=== PATIENT | female | born 1945 | race Caucasian/White ===

== ENCOUNTER → 2019-01-30 | Day surgery (SDC) | payer MEDICARE ==
[2019-01-27 11:57] LABS: ANION GAP 12.9 mmol/L (8-16); BLOOD UREA NITROGEN 23 mg/dL (7-26); BUN/CREATININE RATIO 27 (6-25); CALCIUM 10.2 mg/dL (8.4-10.2); CARBON DIOXIDE 31 mmol/L (22-29); CHLORIDE 98 mmol/L (98-107); CREATININE, SERUM 0.84 mg/dL (0.57-1.11); EST GLOMERULAR FILTRATION RATE > 60 ML/MIN (60-); GLUCOSE 90 mg/dL (74-118); POTASSIUM 3.9 mmol/L (3.5-5.1); SODIUM 138 mmol/L (136-145)
[2019-01-27 12:37] LABS: BASOPHILS # (AUTO) 0.1 (0.0-0.1); EOSINOPHILS # (AUTO) 0.2 (0.0-0.4); EOSINOPHILS % 2.1 % (0.0-6.0); HEMATOCRIT 46.2 % (34.2-44.1); HEMOGLOBIN 15.1 g/dL (12.0-16.0); LYMPHOCYTES # (AUTO) 1.8 (1.0-3.2); LYMPHOCYTES % 22.3 % (18.0-39.1); MEAN CORPUSCULAR HEMOGLOBIN 30.1 pg (28-32); MEAN CORPUSCULAR HGB CONC 32.7 g/dL (31-35); MEAN CORPUSCULAR VOLUME 92.2 fL (81-99); MONOCYTES # (AUTO) 0.6 (0.2-0.8); MONOCYTES % 7.3 % (4.4-11.3); NEUTROPHILS # (AUTO) 5.5 (2.1-6.9); NEUTROPHILS % 67.1 % (38.7-80.0); PLATELET COUNT 236 x10e3/uL (140-360); RED BLOOD COUNT 5.01 x10e6/uL (3.6-5.1); RED CELL DISTRIBUTION WIDTH 12.6 % (11.7-14.4)
--- NOTE | 2019-01-27 13:00 | Diagnostic Imaging Report ---
EXAMINATION: PA and lateral views of the chest. COMPARISON: None CLINICAL HISTORY: Preoperative study for thigh surgery DISCUSSION: Postsurgical changes of the left lung presumably related to partial pneumonectomy with elevation of the left hemidiaphragm. Left hilar surgical clips. No airspace consolidation, pleural effusion, or pneumothorax. Cardiomediastinal contour is otherwise within normal limits. No acute osseous abnormality. Posterior left seventh rib defect. Degenerative disc changes of the thoracic spine. IMPRESSION: No acute cardiopulmonary abnormality. Signed by: Dr. Ricardo Farooq M.D. on 01/27/2019 12:57 PM
[~2019-01-30] MED LIST: ATORVASTATIN CA20 MG PO; BUPIVACAINE 0.25% 30ML SDV INJ ONE; BUPIVACAINE/EPINEPHRINE 0.25% 10 ML SDV INJ ONE; CRANBERRY 12,61 EACH PO; DOXYCYCLINE HY100 MG PO; FENTANYL CITRATE/PF 100MCG/2 ML INJ ONE; FISH OIL 1,0001 EAC2 PO; IMIPRAMINE HCL50 MG PO; LIDOCAINE HCL 1% LOCAL INJ 20 ML VIAL ONE; LIDOCAINE HCL 2% LOCAL INJ 5 ML SDV VIAL INJ ONE; LOSARTAN POTASS25 MG PO; MIDAZOLAM HCL 2 MG/2 ML VIAL ONE; OSTEO BI-FLEX1 EACH; OXYBUTYNIN CHLOR5 MG PO; PANTOPRAZOLE SO40 MG PO; PEPCID20 MG; PRILOSEC20 MG; PROBIOTIC & AC1 EACH PO; PROPOFOL IV EMULSION 10 MG/ML 20 ML VIAL ONE; TURMERIC PO; VIT D PO; VITAMIN E400 UNI2; WOMEN'S DAILY1 EAC1; ZINC SULFATE220 MG PO
--- OUTSIDE RECORDS SUMMARY | 2019-01-30 06:24 | XMS REPORT | Clinical Summary ---
Author Author [facility] Address Unknown Phone Unavailable Care Team Providers Care Hydro Operator Name Role Phone Mason Woodall MD PCP Allergies Comments Active Allergy Reactions Severity Noted Date Iodine 02/17/2016 Medications End Date Status Medication Sig Dispensed Refills Start Date Active atorvastatin (LIPITOR) 20 0 MG tablet 6 Active clocortolone pivalate 0.1 0 % cream 6 Active doxycycline (PERIOSTAT) 0 20 MG tablet 6 Active losartan-hydrochlorothiaz 0 melyssa (HYZAAR) 50-12.5 mg 6 per tablet Active metroNIDAZOLE 0 (METROCREAM) 0.75 % cream 6 Active pantoprazole (PROTONIX) 0 40 MG EC tablet 6 Active imipramine (TOFRANIL) 50 Take 50 mg by 0 MG tablet mouth nightly. Active SACCHAROMYCES BOULARDII Take by 0 (PROBIOTIC, S.BOULARDII, mouth. ORAL) Active cholecalciferol, vitamin Take 5,000 0 D3, (VITAMIN D3) 5,000 Units by unit capsule mouth daily. Active zinc acetate 50 mg (zinc) Take by 0 capsule mouth. Active MULTIVITAMIN ORAL Take by 0 mouth. Active GLUCOSAMINE HCL/CHONDR LEBLANC Take by 0 A NA (OSTEO BI-FLEX ORAL) mouth. 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 Last Filed Vital Signs Not on file Plan of Treatment Health Maintenance Due Date Last Done Comments BREAST CANCER SCREENING 1994 COLONOSCOPY SCREENING 1994 SHINGLES VACCINES (#1) 1994 65+ PNEUMOCOCCAL VACCINE 2009 (1 of 2 - PCV13) INFLUENZA VACCINE 03/12/2019 Results Not on fileafter 01/29/2018 Insurance Type Payer Benefit Subscriber ID Effective Phone Address Plan / Dates Group Medicare MEDICARE MEDICARE xxxxxxxxxx 2009- [place], PART A AND Present [place] B PPO AETNA AETNA PPO xxxxxxxxxx [id number] OPEN resent CHOICE Advance Directives Patient has advance care planning documents on file. For more information, mouna aceves contact: Minh Whitehead [address] [place] [address]
--- OUTSIDE RECORDS SUMMARY | 2019-01-30 06:24 | XMS REPORT ---
Author Author [facility] Address Unknown Phone Unavailable Care Team Providers Care Fur Sorter Name Role Phone Jennifer FRAGA Unavailable Unavailable Problems This patient has no known problems. Allergies, Adverse Reactions, Alerts This patient has no known allergies or adverse reactions. Medications This patient has no known medications. Results Test Description Test Time Test Comments Text Results Atomic Results Result Comments CHEST 2 VIEWS 2019-01-27 12:55:00 [facility] [address] [place] [address] Patient Name: MULU STILL MR #: [id number] : 1945 Age/Sex: 73/F Req #: [id number] Adm Physician: Ordered by: DRE FRAGA MD Report #: [id number] Location: OR Room/Bed: Procedure: [id number] DX/CHEST 2 VIEWS Exam Date: 01/27/19 Exam Time: 1140 REPORT STATUS: Signed EXAMINATION: PA and lateral views of the chest. COMPARISON: None CLINICAL HISTORY: Preoperative study for thigh surgery DISCUSSION: Postsurgical changes of the left lung presumably related to partial pneumonectomy with elevation of the left hemidiaphragm. Left hilar surgical clips. No airspace consolidation, pleural effusion, or pneumothorax. Cardiomediastinal contour is otherwise within normal limits. No acute oss eous abnormality. Posterior left seventh rib defect. Degenerative disc changes of the thoracic spine. IMPRESSION: No acute cardiopulmonary abnormality. Signed by: Dr. Bi Dennis M.D. on 01/27/2019 12:57 PM Dictated By: BI DENNIS MD [id number] Transcribed By: PAT on 01/27/19 1257 COPY TO: DRE FRAGA MD SCR MAMM BILATERAL ASHLEY CAD DIGITAL 2018-06-19 08:27:29 - SCR MAMM BILATERAL ASHLEY CAD DIGITALBILATERAL DIGITAL SCREENING MAMMOGRAM 3D/2D WITH CAD: 06/18/2018CLINICAL: Asymptomatic. Digital breast tomosynthesis was performed in addition to routine CC and MLO views. Current mammographic images were evaluated by either a [employer] M-Vu or a [employer] CAD (computer aided detection system). Comparison is made to exams dated 09/07/2016 mammogram, 08/29 mammogram, and 08/20/2014 mammogram - [facility]. There are scattered fibroglandular tissues in both breasts. There is a benign mass and a calcification in the right breast. There also is a benign intramammary node in the left breast. No suspicious mass, architectural distortion, malignant type calcification, or lymph node abnormality detected. Breast architecture is stable compared to prior exams.IMPRESSION: BENIGNThere is no mammographic evidence of malignancy. Resume annual screening mammography in one year. Rene Sol M.D. ss/penrad:06/19/2018 08:27:29 Home Decorator: Cammy Weber , [facility] sent: BIRADS 1-2 Normal Mammogram BI-RADS: 2 Benign
--- NOTE | 2019-01-30 09:52 | Operative Report ---
DATE OF PROCEDURE: 01/30/2019 SURGEON: Edward Decker MD POSTOPERATIVE DIAGNOSIS: Mass of the right thigh. POSTOPERATIVE DIAGNOSIS: Mass of the right thigh. OPERATION PERFORMED: Excision of mass of the right thigh. ANESTHESIA: Local 1% Xylocaine and MAC. COMPLICATIONS: None. ESTIMATED BLOOD LOSS: Minimal. DESCRIPTION OF PROCEDURE: With the patient lying in bed in the supine position under good IV sedation, the right upper thigh was prepped with Betadine solution and draped in the usual manner. The area overlying the mass in the medial aspect of the right upper thigh was then infiltrated with 1% Xylocaine solution. An incision was made. It was carried down through the subcutaneous tissue and through the superficial fascia and on top of the fascia. A well encapsulated lipomatous mass was encountered, which was slowly and carefully from the surrounding structures and totally and completely removed and sent for pathological examination. The whole area was thoroughly irrigated. Perfect hemostasis was ascertained. The subcutaneous tissue was then reapproximated with interrupted sutures of 3-0 Vicryl and the skin was closed with subcuticular 5-0 Vicryl. Benzoin, Steri-Strips, and dressings were applied. The sponge, lap, and needle count was correct. The patient tolerated the procedure well and returned to the recovery room in stable condition. Edward Decker MD JLR/MODL /[id number]
[2019-01-30 09:55] VITALS: BP 115/63
== END | disposition home or self-care (01) ==
LOC: OR 06:21
PROVIDERS: ATTEND Surgery
DX: D17.79 Benign lipomatous neoplasm of other sites (principal); I10 Essential (primary) hypertension; K21.9 Gastro-esophageal reflux disease without esophagitis; F41.9 Anxiety disorder, unspecified; Z88.8 Allergy status to other drugs, medicaments and biological substances; Z01.810 Encounter for preprocedural cardiovascular examination; Z01.812 Encounter for preprocedural laboratory examination; Z01.818 Encounter for other preprocedural examination; Z85.118 Personal history of other malignant neoplasm of bronchus and lung
CPT/HCPCS: 27337; 36415; 71046; 80048; 85025; 88304; 93005; J2001 ×2; J2250; J2704; J3010